=== PATIENT | male | born 1985 | race Caucasian/White ===

== ENCOUNTER 2023-01-21 14:50 | Observation (INO) | payer OTHER ==
--- NOTE | 2023-01-21 17:54 | ED ---
General Adult HPI - General Source: patient, RN notes reviewed Mode of arrival: ambulatory Limitations: no limitations <My Ayoub - Last Filed: 01/21/23 17:51> - General Source: patient, RN notes reviewed <Maddie Cordon - Last Filed: 01/22/23 03:05> - General Chief complaint: Recheck/Abnormal Lab/Rx Stated complaint: Graft clotted right arm Time Seen by Provider: 01/21/23 17:52 - History of Present Illness Initial comments: 37-year-old male with a past medical history of dialysis presents to the emergency department with dialysis graft problem. Patient reports he has not had dialysis since Friday01/17/2023 (My Ayoub) Patient is a pleasant 37-year-old male presenting to the emergency room at the direction of his nephrology office and dialysis clinic due to the inability for him to be dialyzed Friday. He reports dialyzing on Friday without any comp occasions but does report recently requiring multiple circuits and higher flow rates last week. He has recently moved to the area and establish with nephrology but has not established with a local vascular surgeon. He attempted to call his previous vascular surgeon for evaluation of his fistula to the right upper extremity but was unable to reach them. He states that since Friday after he was unable to be dialyzed that he has not had a bruit or thrill to his right upper arm AV fistula. He also reports noticing some bruising around the site. He states that when they attempted to cannulate him on Friday that he had "black" withdrawal from the site. He is complaining of some uremic symptoms that began earlier this morning including extreme fatigue and decreased appetite, he denies any nausea, vomiting or pruritus. He does still makes some urine. He reports that he has significant hyperkalemic issues with his renal disease and is concerned regarding his potassium level. He is compliant with his diet and hypertensive medication regiment. He is an end-stage renal patient due to polycystic kidney disease. In addition to his ESRD due to PKD he has past medical history significant for gout and hypertension. (Maddie Cordon) - Related Data Allergies Allergy/AdvReac Type Severity Reaction Status Date / Time Penicillins Allergy Anaphylaxis Verified 01/21/23 15:24 Review of Systems ROS Other: All systems not noted in ROS Statement are negative. <My Ayoub - Last Filed: 01/21/23 17:51> ROS Other: All systems not noted in ROS Statement are negative. <Maddie Cordon - Last Filed: 01/22/23 03:05> ROS Statement: Those systems with pertinent positive or pertinent negative responses have been documented in the HPI. Past Medical History Past Medical History: Renal Disease History of Any Multi-Drug Resistant Organisms: None Reported Past Surgical History: No Surgical Hx Reported Past Psychological History: No Psychological Hx Reported Smoking Status: Former smoker Past Alcohol Use History: Rare Past Drug Use History: None Reported <My Ayoub - Last Filed: 01/21/23 17:51> Past Medical History: Dialysis, Hypertension, Renal Disease (PDK- ESRD) Additional Past Medical History / Comment(s): Gout <Maddie Cordon - Last Filed: 01/22/23 03:05> General Exam Limitations: no limitations <My Ayoub - Last Filed: 01/21/23 17:51> Limitations: no limitations General appearance: alert, in no apparent distress Head exam: Present: atraumatic, normocephalic, normal inspection Eye exam: Present: normal appearance, PERRL, EOMI. Absent: scleral icterus, conjunctival injection, periorbital swelling ENT exam: Present: normal exam, mucous membranes moist Neck exam: Present: normal inspection, full ROM Respiratory exam: Present: normal lung sounds bilaterally. Absent: respiratory distress, wheezes, rales, rhonchi, stridor Cardiovascular Exam: Present: regular rate, normal rhythm, normal heart sounds. Absent: systolic murmur, diastolic murmur, rubs, gallop, clicks GI/Abdominal exam: Present: soft, other (rounded). Absent: tenderness, guarding, rebound, rigid Right Upper Arm exam: Present: full ROM, other (AV fistula with no bruit or thrill. Mild bruising noted to medial aspect.). Absent: tenderness, swelling Back exam: Present: normal inspection Neurological exam: Present: alert, oriented X3, CN II-XII intact Psychiatric exam: Present: normal affect, normal mood Skin exam: Present: warm, dry, intact. Absent: rash <Maddie Cordon - Last Filed: 01/22/23 03:05> - General Exam Comments Initial Comments: Visual Physical Exam Vital signs reviewed General: Well-appearing, nontoxic, no acute distress. Head: Normocephalic, atraumatic Eyes: PERRLA, EOMI ENT: Airway patent Chest: Nonlabored breathing Skin: No visual rash, normal skin tone Neuro: Alert and oriented 3 Musculoskeletal: No gross abnormalities (My Ayoub) Course Vital Signs 01/21/23 01/21/23 01/22/23 15:16 23:54 00:50 Temperature 97.6 F Pulse Rate 81 81 70 Respiratory 18 15 15 Rate Blood Pressure 120/71 121/64 O2 Sat by Pulse 97 98 97 Oximetry Medical Decision Making - Lab Data Result diagrams: 01/21/23 21:50 01/21/23 21:50 <Maddie Cordon - Last Filed: 01/22/23 03:05> - Medical Decision Making Was pt. sent in by a medical professional or institution (, PA, OIL WELL CABLE TOOL OPERATOR, urgent care, hospital, or jail...) When possible be specific @ -Yes was directed to present to the emergency room by nephrology office and dialysis center Did you speak to anyone other than the patient for history (EMS, parent, family, police, friend...)? What history was obtained from this source @ -[No] Did you review nursing and triage notes (agree or disagree)? Why? @ -[I reviewed and agree with nursing and triage notes] Were old charts reviewed (outside hosp., previous admission, EMS record, old EKG, old radiological studies, urgent care reports/EKG's, jail records)? Report findings @ -[No old charts were reviewed] Differential Diagnosis (chest pain, altered mental status, abdominal pain women, abdominal pain men, vaginal bleeding, weakness, fever, dyspnea, syncope, headache, dizziness, GI bleed, back pain, seizure, CVA, palpatations, mental health, musculoskeletal)? @ -[not applicable] EKG interpreted by me (3pts min.). @ -Sinus rhythm, ventricular rate 60 bpm, MD interval 144 ms, QRS duration 90 ms, QT/QTC 410/4 and 35 ms, PRT axes 39, 1, -2 X-rays interpreted by me (1pt min.). @ -[None done] CT interpreted by me (1pt min.). @ -[None done] U/S interpreted by me (1pt. min.). @ -[None done] What testing was considered but not performed or refused? (CT, X-rays, U/S, labs)? Why? @ -[None] What meds were considered but not given or refused? Why? @ -[None] Did you discuss the management of the patient with other professionals (professionals i.e. Dr., PA, OIL WELL CABLE TOOL OPERATOR, lab, RT, psych nurse, social media marketing analyst, summer analyst, teacher, chief investment officer, bilingual case manager)? Give summary @ -Yes, spoke with Dr. Pierre nephrology airways operations specialist regarding patient's presentation, malfunction of dialysis catheter and inability to dialyze yesterday on his regular day of Friday. He advised admission to medicine with consult to nephrology and vascular for dialysis access. Was smoking cessation discussed for >3mins.? @ -[No] Was critical care preformed (if so, how long)? @ -[No] Were there social determinants of health that impacted care today? How? (Homelessness, low income, unemployed, alcoholism, drug addiction, transportation, low edu. Level, literacy, decrease access to med. care, halfway, rehab)? @ -[No] Was there de-escalation of care discussed even if they declined (Discuss DNR or withdrawal of care, Hospice)? DNR status @ -[No] What co-morbidities impacted this encounter? (DM, HTN, Smoking, COPD, CAD, Cancer, CVA, ARF, Chemo, Hep., AIDS, mental health diagnosis, sleep apnea, morbid obesity)? @ -[None] Was patient admitted / discharged? Hospital course, mention meds given and route, prescriptions, significant lab abnormalities, going to OR and other pertinent info. @ -37-year-old male presenting to the emergency room at the direction of his nephrology office and dialysis clinic due to the inability for him to be dialyzed Friday. He reports dialyzing on Friday without any comp occasions but does report recently requiring multiple circuits and higher flow rates last week. Laboratory studies ordered by triaging provider show normal CBC, CMP with BUN of 84 creatinine 11.60 glucose 142 potassium, sodium and bicarb all normal. Will add laboratory studies of phosphorus and magnesium and obtain an EKG. EKG shows sinus rhythm, phosphorus 7.6 magnesium 2.4 no indication for further diagnostic imaging or laboratory studies at this time. Spoke with nephrology regarding patient's presentation last dialysis treatment and current laboratory studies. He advised admission outpatient to medicine with consults to nephrology and vascular. Will admit patient to E services with patient placed on E MH list and notified provider in a.m. per on-call providers request. Will admit patient in stable condition to observation unit under [facility] services with consults to nephrology and vascular for further evaluation and treatment of dialysis AV fistula malfunction. Undiagnosed new problem with uncertain prognosis? @ -[No] Drug Therapy requiring intensive monitoring for toxicity (Heparin, Nitro, Insulin, Cardizem)? @ -[No] Were any procedures done? @ -[No] Diagnosis/symptom? @ -Malfunctioning AV fistula for hemodialysis Acute, or Chronic, or Acute on Chronic? @ -Acute Uncomplicated (without systemic symptoms) or Complicated (systemic symptoms)? @ -Complicated Side effects of treatment? @ -[No] Exacerbation, Progression, or Severe Exacerbation? @ -[No] Poses a threat to life or bodily function? How? (Chest pain, USA, VT, pneumonia, PE, COPD, DKA, ARF, appy, cholecystitis, CVA, Diverticulitis, Homicidal, Suicidal, threat to staff... and all critical care pts) @ -Yes, unable to dialyze at risk for uremia, electric abnormalities and cardiac arrest. Case discussed with Dr. Romo. ([facility]) - Lab Data Lab Results 01/21/23 01/21/23 01/21/23 Range/Units 21:50 21:50 21:50 WBC 7.4 (3.8-10.6) k/uL RBC 4.53 (4.30-5.90) m/uL Hgb 14.8 (13.0-17.5) gm/dL Hct 44.2 (39.0-53.0) % MCV 97.6 (80.0-100.0) fL MCH 32.6 (25.0-35.0) pg MCHC 33.4 (31.0-37.0) g/dL RDW 14.2 (11.5-15.5) % Plt Count 173 (150-450) k/uL MPV 8.6 Neutrophils % 65 % Lymphocytes % 25 % Monocytes % 5 % Eosinophils % 3 % Basophils % 1 % Neutrophils # 4.8 (1.3-7.7) k/uL Lymphocytes # 1.9 (1.0-4.8) k/uL Monocytes # 0.3 (0-1.0) k/uL Eosinophils # 0.2 (0-0.7) k/uL Basophils # 0.0 (0-0.2) k/uL Sodium 141 (137-145) mmol/L Potassium 4.0 (3.5-5.1) mmol/L Chloride 101 (98-107) mmol/L Carbon Dioxide 23 (22-30) mmol/L Anion Gap 17 mmol/L BUN 84 H (9-20) mg/dL Creatinine 11.60 H* (0.66-1.25) mg/dL Est GFR (CKD-EPI)AfAm 6 (>60 ml/min/1.73 sqM) Est GFR (CKD-EPI)NonAf 5 (>60 ml/min/1.73 sqM) Glucose 142 H (74-99) mg/dL Plasma Lactic Acid Nadir 1.1 (0.7-2.0) mmol/L Calcium 9.0 (8.4-10.2) mg/dL Phosphorus (2.5-4.5) mg/dL Magnesium (1.6-2.3) mg/dL Total Bilirubin 0.6 (0.2-1.3) mg/dL AST 22 (17-59) U/L ALT 14 (4-49) U/L Alkaline Phosphatase 51 (38-126) U/L Total Protein 7.1 (6.3-8.2) g/dL Albumin 4.4 (3.5-5.0) g/dL 01/21/23 Range/Units 22:49 WBC (3.8-10.6) k/uL RBC (4.30-5.90) m/uL Hgb (13.0-17.5) gm/dL Hct (39.0-53.0) % MCV (80.0-100.0) fL MCH (25.0-35.0) pg MCHC (31.0-37.0) g/dL RDW (11.5-15.5) % Plt Count (150-450) k/uL MPV Neutrophils % % Lymphocytes % % Monocytes % % Eosinophils % % Basophils % % Neutrophils # (1.3-7.7) k/uL Lymphocytes # (1.0-4.8) k/uL Monocytes # (0-1.0) k/uL Eosinophils # (0-0.7) k/uL Basophils # (0-0.2) k/uL Sodium (137-145) mmol/L Potassium (3.5-5.1) mmol/L Chloride (98-107) mmol/L Carbon Dioxide (22-30) mmol/L Anion Gap mmol/L BUN (9-20) mg/dL Creatinine (0.66-1.25) mg/dL Est GFR (CKD-EPI)AfAm (>60 ml/min/1.73 sqM) Est GFR (CKD-EPI)NonAf (>60 ml/min/1.73 sqM) Glucose (74-99) mg/dL Plasma Lactic Acid Nadir (0.7-2.0) mmol/L Calcium (8.4-10.2) mg/dL Phosphorus 7.6 H (2.5-4.5) mg/dL Magnesium 2.4 H (1.6-2.3) mg/dL Total Bilirubin (0.2-1.3) mg/dL AST (17-59) U/L ALT (4-49) U/L Alkaline Phosphatase (38-126) U/L Total Protein (6.3-8.2) g/dL Albumin (3.5-5.0) g/dL Disposition <My Ayoub - Last Filed: 01/21/23 17:51> Time of Disposition: 23:54 <Maddie Cordon - Last Filed: 01/22/23 03:05> Clinical Impression: Dialysis AV fistula malfunction Disposition: ADMITTED IP TO THIS HOSP Condition: Stable
[2023-01-21 22:13] LABS: Basophils % (A) 1 %; Eosinophils # (A) 0.2 k/uL (0-0.7); Eosinophils % (A) 3 %; HCT 44.2 % (39.0-53.0); HGB 14.8 gm/dL (13.0-17.5); Lymphocytes # (A) 1.9 k/uL (1.0-4.8); Lymphocytes % (A) 25 %; MCH 32.6 pg (25.0-35.0); MCHC 33.4 g/dL (31.0-37.0); MCV 97.6 fL (80.0-100.0); Mean Platelet Volume 8.6; Monocytes # (A) 0.3 k/uL (0-1.0); Monocytes % (A) 5 %; Neutrophils # (A) 4.8 k/uL (1.3-7.7); Neutrophils % (A) 65 %; Platelet Count 173 k/uL (150-450); RBC 4.53 m/uL (4.30-5.90); RDW 14.2 % (11.5-15.5); WBC 7.4 k/uL (3.8-10.6)
[2023-01-21 22:28] LABS: Albumin 4.4 g/dL (3.5-5.0); Total Bilirubin 0.6 mg/dL (0.2-1.3); Total Protein 7.1 g/dL (6.3-8.2)
[2023-01-21 23:16] LABS: Magnesium 2.4 mg/dL (1.6-2.3); Phosphorus 7.6 mg/dL (2.5-4.5)
[2023-01-21] MEDS ORDERED: ACETAMINOPHEN TAB 325 MG TAB PO PRN (23:54)
[2023-01-21] MEDS ORDERED: HYDROcodone/APAP 5-325MG 1 EACH TAB PO PRN (23:54)
[2023-01-21] MEDS ORDERED: NALOXONE 0.4 MG/ML 1 ML VIAL IV PRN (23:54)
--- NOTE | 2023-01-22 09:02 | P.GSCN ---
History of Present Illness Consult date: 01/22/23 Reason for Consult: Dialysis access Requesting physician: Maddie Cordon History of present illness: This is a 37-year-old male who presented to the emergency department yesterday afternoon with complaints of nonfunctioning right upper extremity AV graft. Patient states last dialysis treatment was on 01/17/2023. He is a Friday schedule and went to get dialysis on Friday however when they accessed graft there was only clotting and dark blood noted. He at that time had no palpable thrill or reported bruit. Patient states end-stage renal disease is related to polycystic kidney disease. AFB graft in the right upper extremity was treated in April [address] Maddie Alatorre from [facility] in [place]. He states he has had to have ballooning of the graft twice this past August but since then has been functioning well. Patient recently moved to the area and was trying to establish with a local vascular surgeon. Patient denies any shortness of breath, chest pain, abdominal pain, nausea or vomiting. Denies any pain to the right upper extremity, no swelling in the lower extremities. He states that he still does make good urine. Vascular surgery was consulted for dialysis access. Patient is visibly upset and stating that he has been in the emergency room waiting for bed since yesterday afternoon. He has not eaten or drinking anything, he is hungry, and he is going to try and reach his vascular surgeon and go down to the [place] area. Admitting labs WBC 7.4 hemoglobin 14.8 platelet count 173,000 sodium 141 potassium 4.0 BUN 84 creatinine 11.6 glucose 142 phosphorus 7.6 magnesium 2.4. Review of Systems A 14 point review systems was completed all pertinent positives and negatives as stated in the HPI. Past Medical History Past Medical History: Dialysis, Hypertension, Renal Disease (PDK- ESRD) Additional Past Medical History / Comment(s): Gout History of Any Multi-Drug Resistant Organisms: None Reported Past Surgical History: No Surgical Hx Reported Past Psychological History: No Psychological Hx Reported Smoking Status: Former smoker Past Alcohol Use History: Rare Past Drug Use History: None Reported Medications and Allergies Allergies Allergy/AdvReac Type Severity Reaction Status Date / Time Penicillins Allergy Anaphylaxis Verified 01/21/23 15:24 Surgical - Exam Vital Signs Temp Pulse Resp BP Pulse Ox 97.6 F 81 18 120/71 97 01/21/23 15:16 01/21/23 15:16 01/21/23 15:16 01/21/23 15:16 01/21/23 15:16 General appearance: The patient is alert, oriented, appears in no acute distress. HET: Head is normocephalic and atraumatic. Pupils are equal and reactive. Neck: Supple. Heart: Regular. Lungs: Equal expansion, normal respiratory effort. Abdomen: Soft, nontender, nondistended. Extremities: Normal skin color and turgor. No cyanosis, rash, ulceration, clubbing, or edema. Bilateral +2 radial pulses. Right upper extremity graft with no palpable thrill or audible bruit. Area of ecchymosis. Nontender, no swelling, or drainage. Neurological: No focal deficits. Results - Labs 01/21/23 21:50 01/21/23 21:50 Abnormal Lab Results - Last 24 Hours (Table) 01/21/23 01/21/23 Range/Units 21:50 22:49 BUN 84 H (9-20) mg/dL Creatinine 11.60 H* (0.66-1.25) mg/dL Glucose 142 H (74-99) mg/dL Phosphorus 7.6 H (2.5-4.5) mg/dL Magnesium 2.4 H (1.6-2.3) mg/dL Diabetes panel 01/21/23 Range/Units 21:50 Sodium 141 (137-145) mmol/L Potassium 4.0 (3.5-5.1) mmol/L Chloride 101 (98-107) mmol/L Carbon Dioxide 23 (22-30) mmol/L BUN 84 H (9-20) mg/dL Creatinine 11.60 H* (0.66-1.25) mg/dL Glucose 142 H (74-99) mg/dL Calcium 9.0 (8.4-10.2) mg/dL AST 22 (17-59) U/L ALT 14 (4-49) U/L Alkaline Phosphatase 51 (38-126) U/L Total Protein 7.1 (6.3-8.2) g/dL Albumin 4.4 (3.5-5.0) g/dL Calcium panel 01/21/23 01/21/23 Range/Units 21:50 22:49 Calcium 9.0 (8.4-10.2) mg/dL Phosphorus 7.6 H (2.5-4.5) mg/dL Albumin 4.4 (3.5-5.0) g/dL Pituitary panel 01/21/23 Range/Units 21:50 Sodium 141 (137-145) mmol/L Potassium 4.0 (3.5-5.1) mmol/L Chloride 101 (98-107) mmol/L Carbon Dioxide 23 (22-30) mmol/L BUN 84 H (9-20) mg/dL Creatinine 11.60 H* (0.66-1.25) mg/dL Glucose 142 H (74-99) mg/dL Calcium 9.0 (8.4-10.2) mg/dL Adrenal panel 01/21/23 Range/Units 21:50 Sodium 141 (137-145) mmol/L Potassium 4.0 (3.5-5.1) mmol/L Chloride 101 (98-107) mmol/L Carbon Dioxide 23 (22-30) mmol/L BUN 84 H (9-20) mg/dL Creatinine 11.60 H* (0.66-1.25) mg/dL Glucose 142 H (74-99) mg/dL Calcium 9.0 (8.4-10.2) mg/dL Total Bilirubin 0.6 (0.2-1.3) mg/dL AST 22 (17-59) U/L ALT 14 (4-49) U/L Alkaline Phosphatase 51 (38-126) U/L Total Protein 7.1 (6.3-8.2) g/dL Albumin 4.4 (3.5-5.0) g/dL Assessment and Plan Assessment: 1. Non-functioning right upper extremity AV graft 2. End-stage renal disease on hemodialysis 3. Hypertension Plan: 1. Patient may have light breakfast then NPO 2. Plan for tentative fistulogram with possible intervention, possible tunneled catheter placement scheduled for this afternoon, however patient states likely he will be leaving to go down to the [place] area to see his vascular surgeon. 3. Hemodialysis per recommendations from nephrology Thank you for this consultation. The impression and plan of care has been dictated as directed. Dr. Kaur I performed a history and examination of this patient, discussed the same with the dictator. I agree with the dictator's note ,documented as a scribe. Any additional findings or plans will be noted.
--- NOTE | 2023-01-22 11:13 | P.NPCON ---
History of Present Illness - Reason for Consult end stage renal disease - History of Present Illness Reason for consultation: End-stage liver disease History of present illness: Patient is a 37-year-old male seen in renal consultation for end-stage renal disease. He is maintained on hemodialysis on Friday schedule for a right upper extremity AV graft. Etiology of his kidney disease is polycystic kidney disease. Patient admits to good urine output. No fever or chills. No vomiting or diarrhea. No chest pain or shortness of breath. Patient states last hemodialysis was on Friday. He did go on Friday but the graft was clotted. He is scheduled to undergo intervention later this afternoon by vascular surgery. Hemodynamically stable. Vision has no active complaints. Vital signs are stable. General: No acute distress. HEENT: Unremarkable. LUNGS: No audible rhonchi or wheezes. HEART: Rate and Rhythm are regular. ABDOMEN: Nontender. EXTREMITITES: No edema. Past Medical History Past Medical History: Dialysis, Hypertension, Renal Disease (PDK- ESRD) Additional Past Medical History / Comment(s): Gout History of Any Multi-Drug Resistant Organisms: None Reported Past Surgical History: No Surgical Hx Reported Past Psychological History: No Psychological Hx Reported Smoking Status: Former smoker Past Alcohol Use History: Rare Past Drug Use History: None Reported Medications and Allergies Home Medications Medication Instructions Recorded Confirmed Type Aspirin EC [Ecotrin Low Dose] 81 mg PO DAILY 01/22/23 01/22/23 History Auryxia 210mg 1 cap PO DAILY PRN 01/22/23 01/22/23 History Auryxia 210mg 2 cap PO TID-W/MEALS 01/22/23 01/22/23 History Ergocalciferol [Vitamin D2 (1250 1,250 mcg PO MO 01/22/23 01/22/23 History Mcg = 97229 Iu)] NIFEdipine XL [Procardia Xl] 30 mg PO DAILY 01/22/23 01/22/23 History Omeprazole 20 mg PO DAILY 01/22/23 01/22/23 History Renaplex-D 1 tab PO MOWEFR 01/22/23 01/22/23 History Tart Burnette 1 cap PO DAILY 01/22/23 01/22/23 History allopurinoL [Zyloprim] 300 mg PO DAILY 01/22/23 01/22/23 History Allergies Allergy/AdvReac Type Severity Reaction Status Date / Time Penicillins AdvReac Seizures Verified 01/22/23 08:41 Physical Exam Vitals: Vital Signs Temp Pulse Pulse Resp BP BP Pulse Ox 01/22/23 10:37 97.9 F 58 L 16 119/78 100 01/22/23 10:14 58 L 18 122/61 96 01/22/23 06:17 58 L 16 01/22/23 04:18 88 15 94 L 01/22/23 00:50 70 15 97 01/21/23 23:54 81 15 121/64 98 01/21/23 15:16 97.6 F 81 18 120/71 97 Intake and Output 01/21/23 01/22/23 01/22/23 22:59 06:59 14:59 Other: Weight 94.801 kg Results - Lab Results Most recent lab results Calcium 9.0 mg/dL (8.4-10.2) 01/21/23 21:50 Phosphorus 7.6 mg/dL (2.5-4.5) H 01/21/23 22:49 Magnesium 2.4 mg/dL (1.6-2.3) H 01/21/23 22:49 01/21/23 21:50 01/21/23 21:50 Assessment and Plan Plan: Assessment: 1. End-stage renal disease maintained on hemodialysis on Friday schedule. Her extremity AV graft. Etiology is polycystic kidney disease. 2. Clotted AV graft. Scheduled for vascular intervention today. 3. Chronic kidney disease mineral bone disease. 4. Hypertension with chronic kidney disease. Controlled. Plan: Hemodialysis today. Resume phosphate binders with meals. Thank you for the consultation. I will continue to follow this patient with you during his hospital stay.
[2023-01-22] MEDS ORDERED: TART CHERRY PO SCH (12:15)
[2023-01-22] MEDS ORDERED: allopurinoL 300 MG TAB PO SCH (12:15)
[2023-01-22] MEDS ORDERED: NIFEdipine XL 30 MG TAB.ER.24 PO SCH (12:15)
[2023-01-22] MEDS ORDERED: PANTOPRAZOLE 40 MG TABLET PO SCH (12:15)
[2023-01-22] MEDS ORDERED: FOLIC ACID-VIT B COMPLEX-VIT C 1 CAP PO SCH (12:30)
[2023-01-22] MEDS ORDERED: SEVELAMER 800 MG TAB PO PRN (14:00)
[2023-01-22] MEDS ORDERED: ALTEPLASE 2 MG VIAL (CATHFLO) IV STA (16:26)
[2023-01-22] MEDS ORDERED: fentaNYL (PF) 50 MCG/ML 2 ML AMP ONE (16:40)
[2023-01-22] MEDS ORDERED: LIDOCAINE 1% INJ 10MG/ML (20 ML MDV) ONE (16:40)
[2023-01-22] MEDS ORDERED: ALTEPLASE 10 MG in SODIUM CHLORIDE 0.9% 50 ML IV STA (16:51)
[2023-01-22] MEDS: fentaNYL (PF) 50 MCG/ML 2 ML AMP IVP ONE ×2 (16:55→17:15)
[2023-01-22] MEDS: MIDAZOLAM 2 MG/2 ML VIAL IVP ONE ×2 (16:55→17:15)
[2023-01-22] MEDS ORDERED: LIDOCAINE 1% INJ 10MG/ML (20 ML MDV) SQ ONE (16:58)
[2023-01-22] MEDS ORDERED: SODIUM CHLORIDE 0.9% 500 ML 500 ML IV ONE (16:59)
[2023-01-22] MEDS ORDERED: IOPAMIDOL-370 100ML BTL INJ ONE (17:49)
--- NOTE | 2023-01-22 18:18 | P.OP ---
Date of Procedure: 01/22/23 Description of Procedure: Preoperative diagnosis: Thrombosed right upper extremity brachial to axillary graft Postoperative diagnosis: Same Procedure: 1 ultrasound-guided AV graft access 2 #2 pharmacal mechanical thrombectomy with 6 AngioJet #3 fistulogram #4 percutaneous transluminal balloon venoplasty of the outflow 7 x 60 balloon, 8 x 60 drug-coated balloon #5 moderate conscious sedation with personal monitoring of certified RN administration with hemodynamic monitoring 60 minutes Surgeon: Pallavi Kaur D.O. EBL: 10 mL IV fluids: See records Urine output: Not measured Drains: None Complications: None immediately apparent Condition: Stable to recovery Operative indication and findings: Patient is a 37-year-old male in today for a thrombosed left upper extremity AV graft, he was offered a thrombectomy and fistulogram. Risks and benefits were discussed including but not limited to bleeding, infection and injury to the vessel. The patient seemingly understood and was willing to proceed. Procedure in detail: Patient was taken to the special suite and placed in supine position. The right upper extremity is prepped and draped in usual sterile fashion. Upper procedure time was performed, all parties are in agreement. Patient was given moderate sedation and personally monitored while certified RN administered. The ultrasound was utilized and the graft was cannulated in both antegrade and retrograde direction through the AV graft and wires were used to access the [place] vessel. A venogram was performed showing patent outflow without any evidence of central stenosis. Similarly done in the direction of the arterial anastomosis, the brachial artery appeared widely patent with excellent flow into the radial and ulnar bifurcation. There did appear to be occlusion of the graft itself. The AngioJet was passed in both directions with the pulse spray of TPA for a total of 10 mg of TPA. This allowed instill and was followed back with a suction thrombectomy. A fistulogram was performed of the outflow showing significant improvement and essentially no further clot burden. There was narrowing at the distal anastomosis therefore a 7 x 60 balloon was utilized in this location. Attention was then turned towards the inflow, and similarly thrombectomy was performed. After this an image was performed showing significant improvement of flow through the graft itself. There did not appear to be any evidence of inflow stenosis. reevaluation of the venous anastomosis it was decided to place a 8 x 60 drug-coated balloon for 3 minutes. This significantly improved the outflow appearance and flow through the graft itself. Catheters and wires were then removed. The sheath removed and [id number] sutures were placed. Hemostasis appeared adequate. The patient was allowed to awaken and returned to recovery in stable condition and tolerated the procedure well.
--- NOTE | 2023-01-22 19:07 | P.HPIM ---
History of Present Illness H&P Date: 01/22/23 This is a pleasant 37-year-old male who presented to the emergency department after going to dialysis up in [place] on Friday at his scheduled appointment and unable to access graft at dialysis and was instructed to come to the nearest emergency department. Patient reports he is new to the [place] area and was using [facility] prior to this and has also been referred to Dr. 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 Patient does not currently have a primary care provider with past medical history of gout, former smoker, end-stage renal disease on dialysis with hypertension. Patient does have a right arm fistula and reports did receive dialysis with no problems on Friday. Of note there were some clotting noted per ocular care technologist during last dialysis treatment. Patient was admitted under observation with vascular surgery on consult along with nephrology. Review Of Systems: Constitutional: No fever, no chills, no night sweats. No weight change. No weakness, fatigue or lethargy. No daytime sleepiness. EENT: No headache. No blurred vision or double vision, no loss of vision. No loss of Hearing, no ringing in the ears, no dizziness. No nasal drainage or congestion. No epistaxis. No sore throat. Lungs: No shortness of breath, cough, no sputum production. No wheezing. Cardiovascular: No chest pain, no lower extremity edema. No palpitations. No paroxysmal nocturnal dyspnea. No orthopnea. No lightheadedness or dizziness. No syncopal episodes. Abdominal: No abdominal pain. No nausea, vomiting. No diarrhea. No constipation. No bloody or tarry stools.. No loss of appetite. Genitourinary: No dysuria, increased frequency, urgency. No urinary retention. Musculoskeletal: No myalgias. No muscle weakness, no gait dysfunction, no frequent falls. No back pain. No neck pain. Integumentary: No wounds, no lesions. No rash or pruritus. No unusual bruising. No change in hair or nails. Neurologic: No aphasia. No facial droop. No change in mentation. No head injury. No headache. No paralysis. No paresthesia. Psychiatric: No depression. No anxiety. No mood swings. Endocrine: No abnormal blood sugars. No weight change. No excessive sweating or thirst. No cold intolerance. PHYSICAL EXAMINATION: GENERAL: The patient is alert and oriented x4, Well developed, well nourished. HEENT: Pupils are round and equally reacting to light. EOMI. no scleral icterus. No conjunctival pallor. Normocephalic, atraumatic. No pharyngeal erythema. No thyromegaly. CARDIOVASCULAR: S1 and S2 muffled PULMONARY: diminished breath sounds bilaterally with no wheezing or rhonchi noted. ABDOMEN: soft. Nontender on exam. non-distended, normoactive bowel sounds. No palpable organomegaly. MUSCULOSKELETAL: No joint swelling or deformity. EXTREMITIES: No cyanosis, clubbing, or pedal edema. Right arm fistula noted with thrill and no obvious abnormalities noted NEUROLOGICAL: Gross neurological examination did not reveal any focal deficits. SKIN: No rashes. Assessment: Dialysis fistula malfunction with thrombosis End-stage renal disease, on hemodialysis Friday/Friday/Friday History of kidney disease Hypertension Former smoker GI prophylaxis DVT prophylaxis Full code Plan: Recommend to continue with current medications and management with vascular surgery nephrology on consult. Patient was sent here by dialysis center for malfunctioning fistula as patient has been having difficulty receiving dialysis this past Friday and also noted to have some clots noted on Friday dialysis Patient is new to the area and has recently moved up to [place] with no primary care provider although was referred to Dr. Villanueva up there for nephrology from h is previous agricultural extension specialist. Patient has been following a Dr. Villanueva outpatient All medications reviewed and resumed as appropriate Patient is currently nothing by mouth awaiting for vascular surgery arteriogram with possible thrombectomy and evaluation of right arm fistula Nephrology consulted and following his patient is requiring dialysis as he missed a few of his last sessions Patient receive hemodialysis and will likely be discharged in 24 hours if fistula remains functioning Will refer outpatient to primary care providers in his area on discharge The impression and plan of care has been dictated by Gabrielle Barrera nurse practitioner as directed. Dr. Estelle MD I have performed a history and examination and MDM of this patient, discussed the same with the dictator, and agree with the dictator's assessment and plan as written ,documented as a scribe. Based on total visit time, I have performed more than 50% of the visit. Any additional findings or plans will be noted. Past Medical History Past Medical History: Dialysis, Hypertension, Renal Disease Additional Past Medical History / Comment(s): Gout History of Any Multi-Drug Resistant Organisms: None Reported Past Surgical History: No Surgical Hx Reported Past Anesthesia/Blood Transfusion Reactions: No Reported Reaction Past Psychological History: No Psychological Hx Reported Smoking Status: Former smoker Past Alcohol Use History: Rare Past Drug Use History: None Reported Medications and Allergies Home Medications Medication Instructions Recorded Confirmed Type Aspirin EC [Ecotrin Low Dose] 81 mg PO DAILY 01/22/23 01/22/23 History Auryxia 210mg 1 cap PO DAILY PRN 01/22/23 01/22/23 History Auryxia 210mg 2 cap PO TID-W/MEALS 01/22/23 01/22/23 History Ergocalciferol [Vitamin D2 (1250 1,250 mcg PO MO 01/22/23 01/22/23 History Mcg = 37028 Iu)] NIFEdipine XL [Procardia Xl] 30 mg PO DAILY 01/22/23 01/22/23 History Omeprazole 20 mg PO DAILY 01/22/23 01/22/23 History Renaplex-D 1 tab PO MOWEFR 01/22/23 01/22/23 History Tart Burnette 1 cap PO DAILY 01/22/23 01/22/23 History allopurinoL [Zyloprim] 300 mg PO DAILY 01/22/23 01/22/23 History Allergies Allergy/AdvReac Type Severity Reaction Status Date / Time Penicillins AdvReac Seizures Verified 01/22/23 08:41 Physical Exam Vitals: Vital Signs Temp Pulse Pulse Resp BP BP Pulse Ox 01/22/23 10:37 97.9 F 58 L 16 119/78 100 01/22/23 10:14 58 L 18 122/61 96 01/22/23 06:17 58 L 16 01/22/23 04:18 88 15 94 L 01/22/23 00:50 70 15 97 01/21/23 23:54 81 15 121/64 98 01/21/23 15:16 97.6 F 81 18 120/71 97 Intake and Output 01/21/23 01/22/23 01/22/23 22:59 06:59 14:59 Other: Weight 94.801 kg 94.801 kg Results CBC & Chem 7: 01/21/23 21:50 01/21/23 21:50 Labs: Abnormal Lab Results - Last 24 Hours (Table) 01/21/23 01/21/23 Range/Units 21:50 22:49 BUN 84 H (9-20) mg/dL Creatinine 11.60 H* (0.66-1.25) mg/dL Glucose 142 H (74-99) mg/dL Phosphorus 7.6 H (2.5-4.5) mg/dL Magnesium 2.4 H (1.6-2.3) mg/dL Thrombosis Risk Factor Assmnt - DVT/VTE Prophylaxis DVT/VTE Prophylaxis: Mechanical Prophylaxis ordered - Choose All That Apply Any of the Below Risk Factors Present?: No Assessment and Plan Time with Patient: Greater than 30
[2023-01-22] MEDS: SEVELAMER 800 MG TAB PO SCH ×2 (23:04→23:05)
[2023-01-22 23:48] VITALS: RESP 18; TEMP 98.1
[2023-01-22 23:52] VITALS: BP 125/78; PULSE 60
--- NOTE | 2023-01-23 08:46 | IR ---
EXAMINATION TYPE: IR angio arteriovenous shunt DATE OF EXAM: 01/22/2023 COMPARISON: NONE HISTORY: Fluoroscopy time. Fluoroscopy was provided to the referring clinician.
[2023-01-23] MEDS ORDERED: NIFEdipine XL 30 MG TAB.ER.24 PO SCH (09:00)
--- NOTE | 2023-01-25 09:57 | P.DS ---
Providers Date of admission: 01/22/23 00:40 Expected date of discharge: 01/22/23 Attending physician: Galen Mena MD Consults: 01/21/23 23:54 Consult Physician Stat Consulting Provider: Jose G Pierre Consult Reason/Comments: ESRD Do you want consulting provider notified?: Already Contacted Consult Physician Stat Consulting Provider: David Murillo Consult Reason/Comments: Dialysis access Do you want consulting provider notified?: Yes Primary care physician: Stated None Hospital Course: Final diagnosis Dialysis fistula malfunction with thrombosis End-stage renal disease, on hemodialysis Friday/Friday/Friday History of kidney disease Hypertension Former smoker GI prophylaxis DVT prophylaxis Full code Discharge disposition Patient is being discharged in a stable condition with guarded prognosis to home. Patient will follow-up with Surinder Bell NP in the outpatient setting upon discharge. Patient is to continue with hemodialysis as scheduled. Total time taken is greater than 35 minutes. Hospital course This is a 37-year-old male who was recently admitted with right arm fistula malfunctioning at dialysis. Patient is maintained on hemodialysis Friday/Friday/Friday and attempted to go Friday and was unable to access and instructed to come to the emergency department. Patient was evaluated by vascular surgery underwent thrombectomy with balloon dilatation with Dr. Kaur and received a dialysis session with no issues. Patient has been cleared for discharge by consultations. Please refer to other consultation notes for furthe r HPI. Patient does not currently have a primary care provider and recently moved to the [facility] and was provided resources. Patient had already followed up with Dr. 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 Currently no reports of chest pain, shortness of breath, or palpitations. Patient is afebrile. No reports of nausea or vomiting and patient is tolerating diet. Patient will be discharged home today. Physical exam: Gen: This is a 37-year-old male who is awake, alert and oriented 3, well- developed, well-nourished HEENT: Head is atraumatic, normocephalic. Pupils equal, round. Sclerae is anicteric. NECK: Supple. No JVD. No lymphadenopathy. No thyromegaly. LUNGS: Clear to auscultation. No wheezes or rhonchi. No intercostal retractions. HEART: Regular rate and rhythm. No murmur. ABDOMEN: Soft. Bowel sounds are present. No masses. No tenderness. EXTREMITIES: No pedal edema. No calf tenderness. Right arm fistula noted with thrill NEUROLOGICAL: Patient is awake, alert and oriented x3. Cranial nerves 2 through 12 are grossly intact. Please refer to medication reconciliation sheet for a list of medications. The impression and plan of care has been dictated by Gabrielle Barrera, Nurse Practitioner as directed. Dr. Estelle MD I have performed a history and examination and MDM of this patient, discussed the same with the dictator, and agree with the dictator's assessment and plan as written ,documented as a scribe. Based on total visit time, I have performed more than 50% of the visit. Patient Condition at Discharge: Stable Plan - Discharge Summary New Discharge Prescriptions: No Action Auryxia 210mg 2 cap PO TID-W/MEALS Tart Burnette 1 cap PO DAILY Auryxia 210mg 1 cap PO DAILY PRN PRN Reason: snacks Aspirin EC [Ecotrin Low Dose] 81 mg PO DAILY Renaplex-D 1 tab PO MOWEFR Omeprazole 20 mg PO DAILY NIFEdipine XL [Procardia Xl] 30 mg PO DAILY Ergocalciferol [Vitamin D2 (1250 Mcg = 75361 Iu)] 1,250 mcg PO MO allopurinoL [Zyloprim] 300 mg PO DAILY Discharge Medication List Aspirin EC [Ecotrin Low Dose] 81 mg PO DAILY 01/22/23 [History] Auryxia 210mg 1 cap PO DAILY PRN 01/22/23 [History] Auryxia 210mg 2 cap PO TID-W/MEALS 01/22/23 [History] Ergocalciferol [Vitamin D2 (1250 Mcg = 89846 Iu)] 1,250 mcg PO MO 01/22/23 [History] NIFEdipine XL [Procardia Xl] 30 mg PO DAILY 01/22/23 [History] Omeprazole 20 mg PO DAILY 01/22/23 [History] Renaplex-D 1 tab PO MOWEFR 01/22/23 [History] Tart Burnette 1 cap PO DAILY 01/22/23 [History] allopurinoL [Zyloprim] 300 mg PO DAILY 01/22/23 [History] Follow up Appointment(s)/Referral(s): Amy Villanueva MD [STAFF PHYSICIAN] - 1 Week Surinder Bell NPC [REFERRING] - 1 Week Patient Instructions/Handouts: Moderate Sedation (DC), Mechanical Thrombectomy (DC), Fistulogram (DC) Activity/Diet/Wound Care/Special Instructions: Patient okay for discharge if fistula is functioning and has received dialysis Activity Limited until follow-up Continue with your scheduled dialysis Friday/Friday/Friday Follow-up nephrology outpatient Follow-up and establish with primary care provider Surinder Bell in [place] Continue current diet Discharge Disposition: HOME SELF-CARE
[2023-01-27] MEDS ORDERED: ERGOCALCIFEROL 1,250 MCG (50,000 IU) CAPSULE PO SCH (09:00)
== END 2023-01-22 23:55 | disposition home or self-care (01) ==
LOC: EC 14:50 → 6NMEDSUR 01-22 00:40
PROVIDERS: ADMIT Internal Medicine; ATTEND Internal Medicine
DX: T82.868A Thrombosis due to vascular prosthetic devices, implants and grafts, initial encounter (principal); I12.0 Hypertensive chronic kidney disease with stage 5 chronic kidney disease or end stage renal disease; N18.6 End stage renal disease; M10.9 Gout, unspecified; Q61.3 Polycystic kidney, unspecified; M89.8X9 Other specified disorders of bone, unspecified site; Z87.891 Personal history of nicotine dependence; Z99.2 Dependence on renal dialysis; Y81.3 Surgical instruments, materials and general- and plastic-surgery devices (including sutures) associated with adverse incidents; Y83.2 Surgical operation with anastomosis, bypass or graft as the cause of abnormal reaction of the patient, or of later complication, without mention of misadventure at the time of the procedure; Z79.82 Long term (current) use of aspirin; Z79.899 Other long term (current) drug therapy; Z88.0 Allergy status to penicillin
CPT/HCPCS: 99285; 36415; 93005; 80053; 83605; 83735; 84100; 85025; 36904; G0378; C1894 ×2; C1769 ×2; C1725 ×2; C2623; C1757; J2250; J2001; J3010; J2997; Q9967; 90935